=== PATIENT | female | born 1985 | race Caucasian/White ===

== ENCOUNTER 2016-07-09 00:48 | Inpatient (IN) | payer OTHER ==
[~2016-07-09] VITALS: Ht 177.8 cm; Wt 64.5 kg
[2016-07-09] VITALS (7 sets, daily range): BP systolic 94–110; BP diastolic 58–61; PULSE 69–77; RESP 15–16; O2SAT 95–100
[~2016-07-09 00:48] MED LIST: FES300 PO; PNV1TABL57 PO
[2016-07-09] MEDS ORDERED: Alum-Mag Hydrox-Simeth 30 mL Suspension PO PRN (01:35)
[2016-07-09] MEDS ORDERED: Ondansetron 2 mg/mL 2 mL Inj IVPUSH PRN (01:35)
[2016-07-09] MEDS ORDERED: Polyethylene Glycol (PEG) 17 Gm Powder PO PRN (01:35)
--- NOTE | 2016-07-09 01:52 | NUR ---
Direct Admit Report given by Francheska Hernandez RN from [facility] prior to arrival. Pt arrived at [facility] with c/o aida-ambilical pain, nausea and anxiety for 2 weeks.Pt had rec'd 3L NS Bolus, last meds 4 mg morphine at 1849, 4 mg zofran at 1849, 2mg Ativan at 2236, 14mg nicoderm patch. Pt has hx of depression, anxiety, and IV drug use. Left Peripheral IV in place, running slowly, multiple attempts due to drug usage. Pt has medications in purse and was seen taking Paxil. Pt arrived onto unit approx 0115 with ambulance crew on bed. Able to walk with steady gait to scale and hospital bed. VSS. No reports of pain. Pt received 3mg morphine and 4mg zofran in route from [facility], NS running to [facility]. Pt settled into bed and is sleepy, yet easily aroused and cooperative. NS currently running at 10ml/hr. Oriented to call light, room. Pain relieved by morphine and patient is comfortable.
[2016-07-09 02:29] LABS: BASOPHILS % (AUTO) 0.5 % (0-3); EOSINOPHILS % (AUTO) 3.8 % (0-5); MONOCYTES % (AUTO) 5.2 % (4-12); Mean Corpuscular Hemoglobin 29.8 pg (27.0-35.0); Mean Corpuscular Volume 89.1 fL (81-100); NEUTROPHILS % (AUTO) 39.9 % (40-74); Platelet Count 251 bil/L (150-400)
[2016-07-09] MEDS ORDERED: BUPR1FIL5 SL (02:40)
[2016-07-09] MEDS ORDERED: PARO30TA75 PO (02:42)
[2016-07-09] MEDS ORDERED: ALPR1TAB2 PO (02:43)
[2016-07-09] MEDS ORDERED: MEDR150D9 IM (02:44)
[2016-07-09 03:03] LABS: Magnesium 1.9 mg/dL (1.6-2.6)
[2016-07-09] MEDS ORDERED: LORazepam 0.5 mg Tablet PO PRN (04:45)
--- NOTE | 2016-07-09 05:11 | PCM.HPMED ---
Subjective Date of Service July 09, 2016 Primary Provider: Admitting Physician: Brittney Castillo DO Primary Care Physician: Loren Peterson MD Attending Physician: Brittney Castillo DO Chief Complaint: abd pain History of Present Illness: 31 yo F with history of anxiety and depression and currently on Suboxone therapy for history of prescription drug abuse presents from [facility] for management of pancreatitis. Patient reports she has been having periumbilical and epigastric pain constantly for the last 2 weeks. The pain worsened the last few days and is associated with nausea, vomiting. She denies any fevers, diarrhea, bloody or dark stools, or dysuria. She reports she did have a head cold a few weeks ago, but that resolved quickly. She denies any illicit drug usage or alcohol. Denies any recent trauma, and no one else in her family has these symptoms. At [facility], her vital signs were stable and normal. She had a lipase that was elevated up to 1683 with normal LFTs. Her UA and CBC were unremarkable. Her Ur Preg was negative. She had a CT abd/pelvis with contrast that did not show any acute or inflammatory changes. She also had an xray abd series that did not show any obstruction. Due to lack of space at [facility], patient was transferred to [facility] for further inpatient care for her pain and elevated lipase. She did receive Morphine and Zofran for symptom management at [facility]. Review of Systems: complete review of systems obtained and negative except as stated in history of present illness Allergies Coded Allergies: No Known Allergies (Unverified Allergy, 08/21/11) Uncoded Allergies: BLUEBERRIES (Allergy, Severe, ANAPHYLAXIS, 08/22/11) Home Medications Xanax QHS Paxil daily Suboxone 4 mg Depo IM PMH Anxiety Depression Rx drug abuse Currently on Suboxone therapy at [facility] Abnormal Pap Smear Surgical History Denies any surgical history Family History Distant family history of breast cancer only Social History Hx Alcohol Use: No Hx Substance Use: No (Pt states None) Hx Tobacco Use: Yes Smoking Status: Current Every Day Smoker (0.5 ppd) Living Arrangement: with Family Exam Vital Signs Vital Sign - Last Date Time Temp Pulse Resp B/P Pulse Ox O2 Delivery O2 Flow Rate FiO2 07/09/16 02:23 73 07/09/16 01:20 36.8 16 110/61 98 Room Air Exam Gen: Well developed female who appears in NAD, A&Ox3 HEENT: PERRLA, EOMI, oropharynx moist and pink Neck: Soft, NT, trachea midline CV: RRR, no m/r/c, peripheral pulses intact and equal Resp; CTAB, no wheezing/rhonchi. normal resp effort Abd: Soft, Tender to palpation of periumbilical and epigastric region, no guarding, no rebound, normoactive bs noted. No rashes MSk; MS grossly intact and equal. No swollen or tender joints, no peripheral edema Neuro: No focal weakness. Neurovascularly intact. Skin: Warm, dry, intact Psych; Appropriate mood and affect, linear thought process. Lab and Diagnostics Result Diagram: 07/09/1620907/09/16209 X-Rays, CTs and MRIs CT abd/pelvis w. contrast from [facility]: Read as No acute inflammatory changes in abdomen. Assessment & Plan 31 yo F with history of anxiety and depression and currently on Suboxone therapy for history of prescription drug abuse presents from [facility] for management of pancreatitis. #Pancreatitis, Present on Admission Lipase was as high as 1600s at H. Has decreased to 177 here. Her pain is well controlled with small doses of Morphine given at [facility]. There was mentioning of IVDU during report from [facility], but patient denies this. No pertinent findings on CT abd/pelvis. Symptoms improving Will continue symptomatic management with Zofran and IV Morphine. Start with clear liquids and increase diet as tolerated Will encourage oral hydration since patient's symptoms are mild and VSS. She did receive copious hydration at [facility]. Placed on Tele for CV monitoring #Mood Disorder, POA Will continue patient's Paroxetine. Monitor to see if this medication is worsening her pancreatitis. Will hold Xanax and instead use Ativan prn anxiety. #Tobacco dependence, POA Encourage cessation, puts her at risk for chronic pancreatitis Nicotine patch prn. Tylenol prn fever/pain Bowel Regimen prn constipation Code Status: Full code Dispo: Patient is admitted under observation status with expected LOS <2 nights due to risk of adverse events and medical complexity. Pain Evaluation: Adequate Pain Control VTE Prophylaxis: Sub-Q Heparin (Unfractionated), SCDs Resuscitation Status: CPR: Attempt Resuscitation Attending Statement The patient was seen and examined together with house staff on 07/09/2016 and I agree with the history, exam and plan as outlined in the note above. Brian Barbour DO July 09, 2016 04:25 Brittney Castillo DO July 09, 2016 06:39
--- NOTE | 2016-07-09 06:49 | NUR ---
Pain/Nausea No requests for pain medication or nausea medication during this shift. Patient experiencing some discomfort, but was able to sleep as she stated, and hasn't felt the pain while resting. No nausea reported. Pt requested warm blankets and chapstick. Preferred to sleep between rounding and vitals.
[2016-07-09] MEDS: 0.9% Sodium Chloride 1,000 ML IV SCH ×2 (08:32→17:57)
[2016-07-09] MEDS: PARoxetine 20 mg Tablet PO SCH (08:33)
[2016-07-09] MEDS: Heparin 5,000 Unit/mL Inj SUBQ SCH ×2 (08:34→16:09)
[2016-07-09] MEDS: Buprenorphine 2 mg SL Tablet SL SCH (09:25)
--- NOTE | 2016-07-09 11:02 | DRSVH ---
PROCEDURE: MRI ABDOMEN WITHOUT CONTRAST ([id number]) INDICATIONS: pancreatitis TECHNIQUE: Coronal HASTE through the abdomen, axial 2-D FLASH in- and [id number], and breath-hold T2 FSE with fat saturation through the biliary system and pancreas. Oblique coronal and axial thin-slice HASTE, radial thick-slab HASTE centered on the extrahepatic bile ducts. Intravenous secretin: Not requested. COMPARISON: None. FINDINGS: Image quality: Diagnostic. Liver: The liver is normal in size. No focal liver lesions are evident. However, evaluation for haywood btle liver lesions is difficult on this exam as the entire liver is not adequately visualized and no contrast was administered. Expected the major flow-voids within the liver including the portal vein and hepatic veins are within normal limits. No signal dropout is evident on the opposed phase images compared to the in phase images to suggest hepatic steatosis. The gallbladder is slightly prominent in size. However, no gallbladder wall thickening or pericholecystic fluid is evident. No cholelithi asis is present. No intrahepatic biliary dilatation is present. The common bile duct measures up to 5 mm in diameter. No intraluminal filling defects are present to suggest choledocholithiasis. Pancreas: The main pancreatic duct is enlarged and measures up to approximately 4 mm. No intralumina l filling defects are appreciated. The pancreas is normal in size. No definite pancreatic lesion is appreciated. No significant peripancreatic edema is evident. No loculated fluid collection is eviden t. Other solid organs: The spleen is normal in size. No adrenal nodules. Both kidneys are normal in s ize, without hydronephrosis. Nodes and vessels: No retroperitoneal or mesenteric adenopathy by size criteria. Aorta and inferior vena cava are normal in size. Bowel and peritoneum: Unenhanced bowel loops are normal in caliber. No free fluid. Lung bases: Small bilateral effusions are present. There is minimal right basilar consolidation. Th e heart is normal in size. Bilateral breast implants are present. Bones and soft tissues: No ventral hernias. Bone marrow is of normal overall signal. Mild degenera tive changes of the lower lumbar spine are present. IMPRESSION: 1. No cholelithiasis or choledocholithiasis. 2. Mild enlargement of the main pancreatic duct without an intraluminal filling defect. No peripanc reatic fluid collections or abscess. No pancreatic mass is evident. The need for dedicated contrast enhanced MR or CT imaging of the pancreas may be determined clinically. 3. Trace bilateral effusions (right slightly greater than left) with corresponding basilar atelectas is. Dictated by: Theodore Terrell M.D. on 07/09/2016 at 9:27 Approved by: Theodore Terrell M.D. on 07/09/2016 at 10:00
--- NOTE | 2016-07-09 11:22 | DRSVH ---
PROCEDURE: US PELVIC SONOGRAM + TRANSVAGINAL SONOGRAM INDICATIONS: lower abd pain TECHNIQUE: Real-time scanning was performed of the pelvic organs, with image documentation. Additional endovagi nal scanning was necessary due to incomplete visualization of the adnexal and endometrial structures by transabdominal scanning. COMPARISON: [facility], MR, MR SABINE MELLO, 07/09/2016, 9:36. FINDINGS: (orthogonal measurements) Uterus size: 7.24 cm, 3.44 cm, 4.28 cm Endometrium thickness: 2.60 mm Right ovary size: 2.62 cm, 3.11 cm, 1.72 cm Left ovary size: 2.12 cm, 1.16 cm, 3.22 cm Transabdominal scanning: Limited scanning through the kidneys shows no hydronephrosis. No pathologi c free abdominal or pelvic fluid. Endovaginal scanning: Uterus: Uterus is normal in size and appearance. Bicornuate uterus noted. Endometrium is within nor mal physiologic limits. Ovaries: Within normal physiologic limits, with multiple bilateral follicular cysts largest on the r ight measuring roughly 21 mm. IMPRESSION: No source for pelvic pain identified sonographically. Dictated by: Beltran Nichols [facility] Interpreted: Henry James MD on 07/09/2016 at 11:20 Transcribed by: JAVAN on 07/09/2016 at 11:22 Approved by: Henry James M.D. on 07/09/2016 at 14:15
[2016-07-09] MEDS ORDERED: ALPR2TAB6 PO (11:39)
--- NOTE | 2016-07-09 13:47 | NUR ---
Social Work- Brief Note Data: EMR reviewed. Pt is a 31 year old female admitted 07/09/16 for pancreatitis per H&P. Pt's insurance is [employer]. Pt's PCP is Loren Peterson MD. SW met with pt at bedside regarding discharge plan, SW role explained. Pt alert and oriented x3. Pt resides in [place] with her family where she is independent at base. Pt has a history of depression and anxiety, SW checked in regarding this. Pt states this is something that she feels every day, but she is able to manage it. She has a history of services at [facility], though she is not currently seeing them after multiple scheduling conflicts. Pt denies SI/HI at this time. SW provided MH resources, pt declining them at this time as she states "I know who I need to call." Pt is currently connected with suboxone through [facility]. Pt reports last visit with [facility] two weeks ago. Pt declines any CD resources at this time. Pt has no DPOA on file, declined paperwork at this time. Pt to discharge home with mother to transport via POV. No anticipated discharge needs. SW will continue to follow as needs arise. Assessment: Pt who is independent at base. Plan: Pt declining MH and CD resources at this time. Pt denies any feelings of SI/HI. Pt to discharge home with mother to transport via POV. No anticipated discharge needs. SW will continue to follow as needs arise. Daisy Clifton, MECHANICAL APPLICATIONS ENGINEER
--- NOTE | 2016-07-09 14:30 | NUR ---
Pain or Nausea Patient is alert and oriented X3. Able to make needs known. Ultrasound and MRI abdomen done this shift per hospitalist. Stable vital signs. Encouraged Hydration. Tolerating well clear liquids for meals. patient ate Jello and ice cream per preference. Abdominal discomfort to left side of abdomen and non pharmacologic method of pain relief with Ice pack with some relief. will continue to monitor. Toby saab hospitalist. awaiting response back.
--- NOTE | 2016-07-09 17:19 | PCM.CHPMED ---
Subjective Date of Service: July 09, 2016 Primary Physician: Admitting Physician: Brittney Castillo DO Primary Care Physician: Loren Peterson MD Attending Physician: Brittney Castillo DO Chief Complaint: Chief Complaint: Abdominal Pain History of Present Illness: GI consult note 31-year-old female with a prior history of IV drug abuse currently on Suboxone and depression/anxiety was transferred to [facility] due to elevated lipase of 1683 discovered at [facility]. Patient states that the last couple weeks she been having some periumbilical and left lower quadrant abdominal pain which is slowly improving. Prior to admission the patient had an increase in the pain with associated nausea and vomiting 1. Patient states that she has never had this pain before and denies any recent alcohol use, stating that she no longer drinks and has not for a number of years. She also states that she has had a few episodes of diarrhea that this was only after using MiraLAX due to constipation. With regards to the pain the patient states that is not radiating, house and moved, is crampy in nature, and is not improving bowel movements. She denies fever, headache, cough, or other signs of systemic infection. Patient was previously an IV drug user was been sober now for 6 years with reported negative hepatitis and HIV panels completed 4 years ago. At [facility], patient underwent CT of the abdomen and pelvis did not show inflammatory pancreas, or obstruction. Patient was treated with copious amounts of fluids as well as morphine and Zofran. MRI on admission here revealed mild enlargement of the main pancreatic duct without intraluminal filling defect. There are no masses or cysts seen in the pancreas. It is noted that this was a nonenhanced MRI. Transvaginal Ultrasound of the patient' s ovaries revealed multiple bilateral follicular cysts with the largest being 21 mm on the right. Review of Systems: See history of present illness PMH Past Medical History Anxiety Depression Rx drug abuse Currently on Suboxone therapy at [facility] Abnormal Pap Smear Hx Any Other Health Problems?: NoHx Diabetes: No Surgical History None Home Medications Xanax QHS Paxil daily Suboxone 4 mg Depo IM Allergies: Coded Allergies: No Known Allergies (Unverified Allergy, 08/21/11) Uncoded Allergies: BLUEBERRIES (Allergy, Severe, ANAPHYLAXIS, 08/22/11) Family History Family History Breast cancer, not first-degree relative Social History Hx Alcohol Use: NoHx Substance Use: No (Pt states None)Hx Tobacco Use: Yes Smoking Status: Current Every Day Smoker (0.5 ppd) Living Arrangement: with Family Exam Vital Signs Vital Sign - Last Date Time Temp Pulse Resp B/P Pulse Ox O2 Delivery O2 Flow Rate FiO2 07/09/16 12:30 36.9 69 15 94/60 97 Room Air Intake and Output 07/08/16 07/08/16 07/09/16 Cumulative From/Thru 15:00 23:00 07:00 07/09/16 01:20 - 07/09/16 06:39 Intake Total 203 ml 203 ml Balance 203 ml 203 ml Intake Oral 150 ml 150 ml IV Total 53 ml 53 ml # Voids 1 1 Additional Information: General: Patient lying comfortably in bed, no acute distress HEENT: No conjunctivitis, PERRLA, neck is supple, oropharynx is clear Cardio: Regular rate and rhythm Respiratory: CTA bilaterally Abdomen: Hyperactive bowel sounds, mild tenderness on palpation in the left upper quadrant with worse tenderness in the left lower quadrant; no rebound tenderness Extremity: No edema, moving all 4 extremities Skin: No rash Neuro: CN II through XII intact, sensation intact throughout Psych: Appropriate mood and affect Lab and Diagnostics Result Diagram: 07/09/1620907/09/16 0210 Assessment & Plan Assessment 31-year-old female with 2 weeks of abdominal pain with acute worsening and a MRI of the abdomen showing mildly dilated pancreatic duct, contracted gallbladder. Patient also has multiple ovarian cysts which could be benign or playing a role in the patient's pain. With such a high elevation of lipase at is likely this patient had pancreatitis likely from a gallstone that has now evacuated the duct, sphincter of Edenilson spasm due to suboxone, or even possibly, but less likely autoimmune pancreatitis. Of note, patient responded well to treatment for pancreatitis with current lipase of 177. Patient's triglycerides were also normal at 111. Problem list: Pancreatitis unknown etiology Anxiety and depression Recovering IV drug user Recommendation: Continue with IV hydration and advance diet as tolerated. Placed her for IgG for can await the GTT. Recommend ordered an MRI with contrast, HIDA scan, gallbladder ultrasound, and will plan to do an EGD tomorrow morning. If we do not have an etiology for the pancreatitis, she will need endoscopic ultrasound. This study can be done as an outpatient. I saw and examined this pt with Dr Moraes and agree with above. Thank you for allowing us to participate in the care of this interesting patient Problems: Pain Evaluation: Adequate Pain Control VTE Prophylaxis: Sub-Q Heparin (Unfractionated), SCDs Resuscitation Status: CPR: Attempt Resuscitation Neil Barr DO July 09, 2016 17:19 Jethro Rodriguez MD July 11, 2016 07:49
[2016-07-09] MEDS ORDERED: Ketorolac 15 mg/mL Inj IVPUSH PRN (19:50)
[2016-07-09] MEDS ORDERED: PARoxetine 20 mg Tablet PO SCH (21:00)
[2016-07-10] MEDS: 0.9% Sodium Chloride 1,000 ML IV SCH ×3 (01:08→18:32)
[2016-07-10] MEDS: Heparin 5,000 Unit/mL Inj SUBQ SCH (01:12)
[2016-07-10 06:11] VITALS: BP 94/52; PULSE 86; RESP 16; O2SAT 96
--- NOTE | 2016-07-10 06:50 | NUR ---
Pain/NPO Pt has had no c/o pain, slept well and no issues w/ 3mg xanax dose. Pt has been NPO as of midnight, will likely have HIDA scan, MRI w/ contrast, and Upper endoscopy, today. It would be best if HIDA scan could come first r/t narcs given during a scope being c/i w/ HIDA.
[2016-07-10] MEDS: PARoxetine 20 mg Tablet PO SCH (08:15)
--- NOTE | 2016-07-10 09:31 | DRSVH ---
PROCEDURE: US ABDOMEN, LIMITED ([id number]) INDICATIONS: Gallbladder/duct stones TECHNIQUE: Real-time focused scanning was performed of the abdomen, with image documentation. COMPARISON: [facility], MR, MR SABINE JACOBO CON, 07/09/2016, 9:36. FINDINGS: Limited exam demonstrating moderately contracted gallbladder which otherwise appears grossl y normal. No definite stones seen. The extra hepatic bile duct measures roughly 6 mm. IMPRESSION: 1. Contracted gallbladder which otherwise is grossly normal. If indicated repeat examination could b e performed after the patient has been fasting 8-10 hours. 2. Extrahepatic bile duct normal in caliber measuring 5.8 mm. Dictated by: Beltran KNIGHT Interpreted: Philippe Polo MD on 07/10/2016 at 9:28 Transcribed by: LAKSHMI on 07/10/2016 at 9:31 Approved by: Philippe Polo M.D. on 07/10/2016 at 11:18
--- NOTE | 2016-07-10 09:56 | PCM.PNMED ---
Subjective Date of Service July 10, 2016 Subjective GI progress note Overnight patient did well. Still continues to have abdominal pain but seems to shift. This morning complaining is one epigastrium with some mild pain in the lower left quadrant which yesterday the pain was majority the left lower quadrant. Left upper quadrant seems to be painless time. Patient denies fever , chills, nausea, vomiting, chest pain, or dizziness. Patient scheduled for ultrasound gallbladder which apparently was performed last night as well as an MRI with contrast and HIDA scan. Patient is also scheduled for an EGD today. Exam Vital Signs Vital Sign - Last Date Time Temp Pulse Resp B/P Pulse Ox O2 Delivery O2 Flow Rate FiO2 07/10/16 06:11 36.9 86 16 94/52 96 Room Air Intake and Output 07/09/16 07/09/16 07/10/16 Cumulative From/Thru 15:00 23:00 07:00 07/09/16 01:20 - 07/10/16 06:11 Intake Total 1435 ml 1378 ml 3016 ml Balance 1435 ml 1378 ml 3016 ml Intake Oral 580 ml 200 ml 930 ml IV Total 855 ml 1178 ml 2086 ml # Voids 4 4 9 Exam General: Patient awake and alert Cardio: Regular rate and rhythm Respiratory: CTA bilaterally Abdomen: Moderate tenderness in epigastrium, mild tenderness left lower quadrant , reduced tenderness in the left upper quadrant Extremities: No edema Psych/neuro: Mood and affect appropriate; sensation intact throughout IVs and Medications Medications Reviewed: Medications were reviewed in detail Lab and Diagnostics Result Diagram: 07/09/16 0210 07/10/16 0745 X-Rays, CTs and MRIs CT abd/pelvis w. contrast from [facility]: Read as No acute inflammatory changes in abdomen. Assessment & Plan Assessment/plan 31-year-old female currently on Suboxone for past IV drug abuse who said 2 weeks of abdominal pain without melena or hematochezia. Patient's symptoms seem to be shifting more towards epigastrium and she will go for an EGD today. Patient is also awaiting HIDA scan and MRI with contrast. The patient's symptoms could be due to numerous ongoing etiologies. Initially her lipase suggested pancreatitis (1600+) that was likely chronic but no clear etiology has been yet defined. Good likelihood that it is second to her Suboxone use causing sphincter of Edenilson spasm causing chronic pancreatitis and leading to mild dilation of the main pancreatic duct as seen on previous MRI. Other etiologies could be from resolved gallstones which should be investigated by the end of the day. The etiology is not completely clear. She will need endoscopic ultrasound. This study can be done as an outpatient. Patient should follow-up to see me in the next few weeks. I spoke to my MA to schedule her with me in the GI Clinic and schedule her with EUS with Dr Simon. Patient also underwent a transvaginal ultrasound with identification of multiple ovarian cysts with the largest being 21 mm on the right side. Some possible that the left lower quadrant pain could be due to the ovarian cysts although this is hard to confirm as her pain continues to shift. I have seen and examined the patient with the resident and agree with above. Thank you for allowing us to participate in the care of this patient; please feel free to call if questions. VTE Prophylaxis: Sub-Q Heparin (Unfractionated), SCDs Resuscitation Status: CPR: Attempt Resuscitation Neil Barr DO July 10, 2016 09:56 Jethro Rodriguez MD July 11, 2016 07:55
--- NOTE | 2016-07-10 10:30 | NUR ---
Morning Rounds Staffed patient's case with Dr. Pace and case management. MD stated patient can have dose of suboxone after HIDA/MRI, stated patient can be discharged after EGD scheduled for this afternoon.
--- NOTE | 2016-07-10 11:56 | DRSVH ---
PROCEDURE: NM HIDA SCAN WITHOUT CCK RADIOPHARMACEUTICAL: 5.1 mCi Tc-99m mebrofenin IV. INDICATIONS: ABDOMEN PAIN/ PANCREATITIS TECHNIQUE: Following intravenous administration of Tc-99m mebrofenin, sequential anterior abdominal images were obtained through at least 60 minutes. COMPARISON: None. FINDINGS: There is normal tracer uptake and excretion by the liver. There is normal visualization o f intrahepatic ducts, common bile duct, and the gallbladder. There is normal tracer excretion into d uodenum. IMPRESSION: Radioisotope uptake through the hepatocytes is normal and excretion through the biliary s ystem also appears normal, with reflux into the gallbladder documenting normal filling of the gallbla dder lumen. This study does not include cholecystokinin injection to measure gallbladder ejection fr action. Findings discussed with Dr. Rodriguez. Dictated by: Philippe Polo M.D. on 07/10/2016 at 11:48 Approved by: Philippe Polo M.D. on 07/10/2016 at 11:54
--- NOTE | 2016-07-10 12:26 | DRSVH ---
PROCEDURE: MRI ABDOMEN WITH CONTRAST INDICATIONS: abd pain, pancreatitis. TECHNIQUE: Multiplanar, multisequence MR imaging of the abdomen was performed with intravenous contra st. COMPARISON: [facility], NM, NM HIDA SCAN WO CCK, 07/10/2016, 9:21. [facility], US, ABDOMEN LTD, 07/09/2016, 18:37. [facility], MR, MR ABD WO CON, 07/09/2016, 9:36. FINDINGS: The pancreas is normal in size. There may be a small amount of peripancreatic fluid prese nt. However, no loculated fluid collections or pseudocysts are evident. The pancreas is well visual ized on these images and does demonstrate continued prominence of the main pancreatic duct, measuring approximately 3-4 mm in diameter. The size of the duct is subjectively smaller on the current study compared to the prior MRI. No pancreatic lesions are evident. Specifically, no mass at the head of the pancreas is appreciated. Symmetric enhancement of the pancreas is present without evidence of s uggest pancreatic necrosis. The superior mesenteric vein, splenic vein, and the splenic artery are p atent and otherwise unremarkable. Mild basilar atelectasis is noted bilaterally. Trace bilateral effusions appear to be present. Othe rwise, the lung bases are clear. The liver is within normal limits. No focal liver lesion is eviden t. The gallbladder is not enlarged. A large amount of residual stool seen within the colon. The ab dominal aorta and inferior vena cava are patent. The kidneys are within normal limits. There is no hydronephrosis. The adrenal glands are unremarkable. The spleen is normal in size. Image osseous s tructures are unremarkable. Incidental note is made of bilateral breast implants. IMPRESSION: 1. Borderline prominent pancreatic duct is subjectively smaller on the current study. There is no p ancreatic mass, pseudocyst, or evidence of pancreatic necrosis. A small amount of peripancreatic flu id is present, likely reactive from the patient's known pancreatitis. 2. Minimal basilar atelectasis. 3. Large amount of residual stool within the colon may be related to constipation. Please correlate clinically. Dictated by: Theodore Terrell M.D. on 07/10/2016 at 11:18 Approved by: Theodore Terrell M.D. on 07/10/2016 at 11:25
[2016-07-10] MEDS: Buprenorphine 2 mg SL Tablet SL SCH (12:27)
[2016-07-10 14:03] VITALS: BP 109/67; PULSE 80; RESP 16; O2SAT 97; O2SAT 98
--- NOTE | 2016-07-10 17:02 | NUR ---
EGD Contacted Dr. Pace with the following cook page: Patient has not yet gone for EGD yet, but supposed to go in about 45 min; MD was going to try and reschedule EGD for tomorrow but does not want to hold up discharge. Just letting you know since discharge after EGD was the plan. Thank you. Jessica SHANNON
--- NOTE | 2016-07-10 17:42 | PCM.DIMED ---
Discharge Instructions Date of Service July 10, 2016 Dates of Hospitalization July 09, 2016 at 01:28 Discharge Diagnosis Discharge Diagnosis Pancreatits, acute, chronic pain, PTSD, recent abnormal papsmear Diet No restrictions, Other (low fat) Call your provider Fever or Chills, Shortness of breath, Bleeding, Chest pain, Vomitting, Excessive diarrhea, Weakness (unilateral), Other Patient Instructions Please follow low fat diet Follow-up plan F/U with PCP in ten days F/U with GI in 2 weeks Use medications that are prescribed to relieve constipation. F/U with MEDICAL ASSISTING PROGRAM DIRECTOR as previously scheduled Angela Pace DO July 10, 2016 17:42
[2016-07-10] MEDS ORDERED: POLY17PO6 PO (17:46)
[2016-07-10] MEDS ORDERED: DOCU-41 PO (17:47)
[2016-07-10 17:53] VITALS: BP 105/69; PULSE 74; RESP 17; O2SAT 98
[2016-07-10 18:45] VITALS: BP 99/59; PULSE 68; RESP 12; O2SAT 97
--- NOTE | 2016-07-10 18:45 | PCM.ENDEGD ---
EGD Date of Service: July 10, 2016 Physician Brittney Castillo DO Pre Procedure Diagnosis: Abdominal pain Post Procedure Dx & Findings: Fundic erosions Procedure Esophagogastroduodenoscopy PROCEDURE IN DETAIL: After proper sedation, Olympus video endoscope was inserted into patient's mouth and esophagus was successfully intubated. Scope introduced esophagus. Esophagus showed normal shiny whitish mucosa consistent with squamous cell component. Z line was intact at 42 cm from the incisors. Scope was advanced to the stomach. Stomach showed normal shiny mucosa with normal appearing rugae folds without any ulcer mass erosion. Cardia fundus body antrum pylorus were all visualized. Retroflexion was done. On retroflexion view, we saw few possible erosions on the fundus. These were biopsied. Stomach was easily inflated and deflatable using air. Scope further events to the distal duodenum. Duodenum revealed normal villous structures with normal appearing folds without any mass ulcer erosion. 5 biopsies obtained to rule out celiac disease. Impression Possible fundic erosion. Doubt this is the cause of the abdominal pain. No clear etiology of abdominal pain. Recommendation Carafate 10 mL 3 times a day. Do not take any other medication 90 minutes before or after taking the Carafate. Continue PPI. Advance diet as tolerated Presedation Assessment Risks and Benefits Informed consent was obtained from the patient after all risks and benefits including but not limited to drug reaction, infection, pain, bleeding, perforation, as well as alternatives were discussed. Patient monitoring Continuous pulse oximetry, cardiac monitoring, blood pressure monitoring, IV access, and oxygen at 2L per nasal cannula. Complications There were no periprocedural complications identified. Post Procedure Plan Post Procedure Recommendations 1. Restrict activities today. 2. Resume normal activities in the morning. 3. Resume medications. 4. GERD behavioral modification: - Avoid fatty, acidic, spicy, large meals - Do not lie down after meals - Do not eat or drink anything for at least 2 1/2 hours before going to bed at night - Discontinue tobacco and alcohol - Decrease or avoid caffeine - Avoid chocolate and mints - Decrease weight - Avoid aspirin and non steroidal anti-inflammatory agents (NSAID) such as Aleve, Advil, Mobic, Naproxen, Ibuprofen, etc 5. Add proton pump inhibitor. Take 30 minutes before 1st meal of the day. 6. Patient informed of normal post procedure side effects as bloating, drowsiness, blood streaking in the stool 7. If gastric biopsy reveal H.pylori, continue with appropriate treatment 8. If small bowel biopsy reveals celiac, continue with appropriate treatment 9. Please don't hesitate to call me with any questions Jethro Rodriguez MD July 10, 2016 18:45
--- NOTE | 2016-07-10 18:48 | PCM.HPANE ---
Patient Data Surgeon Admitting Provider:Brittney Castillo DO Attending Provider:Brittney Castillo DO Primary Care Physician:Loren Peterson MD Other Provider: Reason for Visit Pancreatitis Ht/WT & BMI Height (Feet): 5 Height (Inches): 10.00 Weight (Kilograms): 64.500 Body Mass Index 20.36 Allergies Coded Allergies: No Known Allergies (Unverified Allergy, 08/21/11) Uncoded Allergies: BLUEBERRIES (Allergy, Severe, ANAPHYLAXIS, 08/22/11) Past Anesthesia History Anesthesia History: Denies:: Anesthesia Reactions, Malignant Hyperthermia Diabetes History Hx Diabetes?: No MRSA MRSA: No Medications Active Scripts Docusate Sodium (Colace)100 Mg [id number] Mg PO BID PRN For Constipation #30 CAPSULE Ref 0 Prov:Angela Pace DO 07/10/16 Polyethylene Glycol 3350 (Miralax)17 Gm Powd.pack17 Gm PO DAILY #14 Prov:Angela Pace DO 07/10/16 Reported Medications Alprazolam 2 Mg Tablet3 Mg PO QPM PRN For Anxiety Ref 0 07/09/16 Medroxyprogesterone Acetate (Depo-Provera)150 Mg/1 Ml [id number] Mg IM 07/09/16 Paroxetine (Paxil)30 Mg Dsqkis44 Mg PO DAILY DEPRESSION Ref 2 07/09/16 Buprenorphine HCl/Naloxone HCl (Suboxone 4 mg-1 mg Sl Film)1 Each Film1 Each SL DAILY PRN Withdrawal Symptoms #1 FILM Ref 0 07/09/16 Discontinued Reported Medications Alprazolam (Xanax)1 Mg Tablet1 Mg PO HS Ref 3 07/09/16 Ferrous Sulfate-Expunged Drug, Do Not Renew! (Feosol-Expunged Drug, Do Not Renew !)325 Mg [id number] ( Po Daily #1 08/22/11 PNV CMB#95/FERROUS FUMARATE/FA-Expunged Drug, (-Expunged Drug, Do Not Renew!)1 Each Tablet1 Each PO DAILY #1 08/22/11 History History of ENT Problems?: No HEENT History: Denies:: Hearing Problem Denture Type: Full- Upper Full- Lower Teeth Condition: Within Normal Limits Hx of Heart Problems?: No Cardiovascular History: Denies:: AICD Abdominal Aortic Aneurism Atrial Fibrillation Cardiac Surgery Chest Pain Congestive Heart Failure Coronary Artery Disease Edema Heart Murmur Hypertension Irregular Heartbeat Pacemaker Peripheral Vascular Rheumatic Fever Thrombophlebitis Valvular Heart Disease Hx of Respiratory Problem?: Yes Respiratory History: Positive for:: Asthma (Exercise induced) Hx Neurologic Problems?: Yes Neurological History: Positive for:: Dizziness Denies:: Alzheimer's Disease CVA Dementia Headaches Parkinson's Disease Seizures Hx of GI Problems?: Yes Other GI Pertinent History: IBS Hx of Problems?: No Genitourinary History: Denies:: HX of Hemodialysis Kidney Stones Urinary Tract Infection Hx Musculoskeletal Problems?: Yes Musculoskeletal History: Positive for:: Back Injury (Back "goes out" occasionally) Denies:: Joint Replacement Musculoskeletal Trauma Hx of Psycho/Social Problems?: Yes Psycho Social History: Positive for:: Anxiety (3mg of xanax before bed) Hx Depression (PTSD) Denies:: Bipolar Disorder Suicide Attempt Hx Surgeries?: Yes (Tonsils, Breast Augmentation 2003) Hx Any Other Health Problems?: No Other History: Positive for:: Hospitalization History Blood Transfusions: Positive for:: Accept Blood Products? Denies:: Blood Transfusions Hx Diabetes: No Hx Alcohol Use: NoHx Substance Use: No (Pt states None) Smoking Status: Current Every Day Smoker Have You Smoked inLast 12 mo: YesApprox How Many Cigarettes/day: 4 Stop/Bang Treated for Sleep Apnea?: No Do You Have a CPAP Machine?: No S-Snoring: Do You Snore Loudly: No T-Tired: feel tired, fatigued: Yes O-Obsered: Observed not breath: No P-Blood Pressure: treated: No B- Body Mass Index > 35 kg/m2: No A- Age over 50: No N- Neck Large Circumference: No G- Gender Male: No GAETANO Total Score: 1 Risk Assessment Category Category 1A: Patient has history of documented sleep apnea, and HAS NOT received any narcotic, sedative or anesthesia administration during this stay. Category 1B: Patient has history of documented sleep apnea, and HAS received any narcotic , sedative or anesthesia administration during this stay Category 2: Patient has SUSPECTED Obstructive Sleep Apnea, and HAS received any narcotic , sedative or anesthesia administration during this stay. Category 3: Patient has SUSPECTED Obstructive Sleep Apnea and HAS NOT received narcotic, sedative or anesthesia administration during this stay. Category 4: Outpatient in Procedural Areas with known sleep apnea or who screen positive for High Risk via the STOP/BANG questionnaire. Exam Exam Vital Signs Vital Signs Date Time Temp Pulse Resp B/P Pulse Ox O2 Delivery O2 Flow Rate FiO2 07/10/16 17:53 36.7 74 17 105/69 98 Room Air 07/10/16 14:03 36.9 80 16 109/67 98 Room Air General Appearance: Alert, Oriented X3, Cooperative, No Acute Distress HEENT/AIRWAY: MP 2 Lungs: Clear to Auscultation Heart: Exam Unremarkable Meds/Labs/Diagnostics Admission Meds Current Medications Famotidine (Pepcid) 20 mg BID PO Last administered on 07/10/16 08:14; Start 07/09/16 at 20:30 Nicotine (Nicoderm 21 mg/ 24 Hr Patch) 1 patch Q24H TOPICAL Last administered on 07/10/16 15:48; Start 07/09/16 at 21:10 Labs Test 07/09/16 02:10 07/09/16 07:00 07/10/16 07:45 White Blood Count 6.1th/mm3 (3.8-10.1) Red Blood Count 3.76mil/mm3 (3.90-5.20) Hemoglobin 11.2g/dL (12.0-15.6) Hematocrit 33.5% (35.0-46.0) Mean Corpuscular Volume 89.1fL (81-100) Mean Corpuscular Hemoglobin 29.8pg (27.0-35.0) Mean Corpuscular Hemoglobin Concent 33.4% (32.0-37.0) Red Cell Distribution Width 12.2% (12.3-15.4) Platelet Count 251bil/L (150-400) Neutrophils (%) (Auto) 39.9% (40-74) Lymphocytes (%) (Auto) 50.4% (14-46) Monocytes (%) (Auto) 5.2% (4-12) Eosinophils (%) (Auto) 3.8% (0-5) Basophils (%) (Auto) 0.5% (0-3) Magnesium Level 1.9mg/dL (1.6-2.6) Triglycerides Level 111mg/dL (0-149) Cholesterol Level 169mg/dL (100-199) LDL Cholesterol, Calculated 110.800mg/dL (0-99) VLDL Cholesterol 22.200mg/dL HDL Cholesterol 36mg/dL (>39) Cholesterol/HDL Ratio 4.69 (0.0-4.4) Sodium Level 142mEq/L (134-144) Potassium Level 4.2mEq/L (3.5-5.2) Chloride Level 108mEq/L (97-108) Carbon Dioxide Level 23mmol/L (18-29) Blood Urea Nitrogen 5mg/dL (6-20) Creatinine 0.62mg/dL (0.57-1.00) Estimat Glomerular Filtration Rate 159mL/min (>59) Glucose Level 99mg/dL (60-99) Calcium Level 8.9mg/dL (8.5-10.1) Total Bilirubin 0.3mg/dL (0.0-1.2) Aspartate Amino Transf (AST/SGOT) 23U/L (0-50) Alanine Aminotransferase (ALT/SGPT) 16U/L (0-32) Alkaline Phosphatase 44U/L (25-150) Total Protein 5.5g/dL (6.4-8.4) Albumin 3.5g/dL (3.4-5.0) Lipase 23U/L (13-60) Plan Impression Patient chart reviewed, patient interviewed and anesthestic plan with risks, benefits, and alternatives discussed, and informed consent obtained. ASA Physical Status: ASA3 Severe Disease Anesthetic Plan: MAC Bene/Risks/Altern/Consents: Yes HP Complete Prior to Induction: Yes Gian Ramírez MD July 10, 2016 18:09
--- NOTE | 2016-07-10 18:49 | PCM.ANEP1 ---
Post Anesthesia Phase 1 PACU Phase 1 Assessment Date of Service: July 10, 2016 Vital Signs Vital Signs Date Time Temp Pulse Resp B/P Pulse Ox O2 Delivery O2 Flow Rate FiO2 07/10/16 17:53 36.7 74 17 105/69 98 Room Air 07/10/16 14:03 36.9 80 16 109/67 98 Room Air Anesthetic Administered: MAC Level of Alertness: Sleepy, easy to arouse LAIRD's with Equal Strength: No Pain: No Pain Scale Score: 8 Nausea or Vomiting: No Cardiovascular Function and Hy: Yes Oxygen Delivery: Room Air Lungs: Clear to Auscultation Dermatome Level: Full Sensation Complications: No Gian Ramírez MD July 10, 2016 18:49
[2016-07-10 18:54] VITALS: BP 108/68; PULSE 67; RESP 12; O2SAT 98
--- NOTE | 2016-07-10 19:24 | NUR ---
Discharge Discharge instructions given Mother at bedside to provide ride, IV acces d/c'd
[2016-07-10] MEDS ORDERED: fentaNYL-PF 50 mCg/mL 2 mL Inj ONE (19:30)
[2016-07-10] MEDS ORDERED: Propofol 10,000 mCg/mL 20 mL Inj ONE (19:30)
--- NOTE | 2016-07-10 22:11 | PCM.DC.MED ---
Discharge Summary Date of Service July 10, 2016 Dates of Hospitalization Date of Hospital Admission July 09, 2016 at 01:28 Date of Discharge: July 10, 2016 Providers: Admitting Physician: Brittney Castillo DO Primary Care Physician: Loren Peterson MD Attending Physician: Brittney Castillo DO Diagnosis at Time of Discharge Diagnosis at Time of Discharge Pancreatits, acute, chronic pain, PTSD, recent abnormal papsmear Consultations GI Procedures XRay, CTs & MRIs CT abd/pelvis w. contrast from [facility]: Read as No acute inflammatory changes in abdomen. PROCEDURE: MRI ABDOMEN WITH CONTRAST IMPRESSION: 1. Borderline prominent pancreatic duct is subjectively smaller on the current study. There is no pancreatic mass, pseudocyst, or evidence of pancreatic necrosis. A small amount of peripancreatic fluid is present, likely reactive from the patient's known pancreatitis. 2. Minimal basilar atelectasis. 3. Large amount of residual stool within the colon may be related to constipation. Please correlate clinically. Dictated by: Theodore Terrell M.D. on 07/10/2016 at 11:18 Approved by: Theodore Terrell M.D. on 07/10/2016 at 11:25 PROCEDURE: NM HIDA SCAN WITHOUT CCK IMPRESSION: Radioisotope uptake through the hepatocytes is normal and excretion through the biliary system also appears normal, with reflux into the gallbladder documenting normal filling of the gallbladder lumen. This study does not include cholecystokinin injection to measure gallbladder ejection fraction. Findings discussed with Dr. Rodriguez. Dictated by: Philippe Polo M.D. on 07/10/2016 at 11:48 Approved by: Philippe Polo M.D. on 07/10/2016 at 11:54 PROCEDURE: US ABDOMEN, LIMITED ([id number]) IMPRESSION: 1. Contracted gallbladder which otherwise is grossly normal. If indicated repeat examination could be performed after the patient has been fasting 8-10 hours. 2. Extrahepatic bile duct normal in caliber measuring 5.8 mm. Dictated by: Beltran Nichols RRA Interpreted: Philippe Polo MD on 07/10/2016 at 9: 28 Transcribed by: LAKSHMI on 07/10/2016 at 9:31 Approved by: Philippe Polo M.D. on 07/10/2016 at 11:18 Brief History GI consult note 31-year-old female with a prior history of IV drug abuse currently on Suboxone and depression/anxiety was transferred to [facility] due to elevated lipase of 1683 discovered at [facility]. Patient states that the last couple weeks she been having some periumbilical and left lower quadrant abdominal pain which is slowly improving. Prior to admission the patient had an increase in the pain with associated nausea and vomiting 1. Patient states that she has never had this pain before and denies any recent alcohol use, stating that she no longer drinks and has not for a number of years. She also states that she has had a few episodes of diarrhea that this was only after using MiraLAX due to constipation. With regards to the pain the patient states that is not radiating, house and moved, is crampy in nature, and is not improving bowel movements. She denies fever, headache, cough, or other signs of systemic infection. Patient was previously an IV drug user was been sober now for 6 years with reported negative hepatitis and HIV panels completed 4 years ago. At [facility], patient underwent CT of the abdomen and pelvis did not show inflammatory pancreas, or obstruction. Patient was treated with copious amounts of fluids as well as morphine and Zofran. MRI on admission here revealed mild enlargement of the main pancreatic duct without intraluminal filling defect. There are no masses or cysts seen in the pancreas. It is noted that this was a nonenhanced MRI. Transvaginal Ultrasound of the patient' s ovaries revealed multiple bilateral follicular cysts with the largest being 21 mm on the right. Hospital Course 31 yo F with history of anxiety and depression and currently on Suboxone therapy for history of prescription drug abuse presents from [facility] for management of pancreatitis. #Pancreatitis, Present on Admission Lipase was as high as 1600s at [facility]. Has decreased to 177 here. Her pain is well controlled with small doses of Morphine given at [facility]. There was mentioning of IVDU during report from [facility], but patient denies this. No pertinent findings on CT abd/pelvis. Symptoms improving Will continue symptomatic management with Zofran and IV Morphine. Start with clear liquids and increase diet as tolerated Will encourage oral hydration since patient's symptoms are mild and VSS. She did receive copious hydration at [facility]. Discontinue telemetry monitoring 07/10 Lipase normalized 07/10. Patient is tolerating clear liquids. Nausea vomiting have resolved GI was consulted and ordered MRI abdomen with contrast, ultrasound of abdomen and HIDA scan: No remarkable findings for cholelithiasis, cholecystitis or biliary dyskinesia. Her pancreatitis is thought to be secondary to her pain medication usage. -- Autoimmune panel ordered by GI is still pending at this time. We will requested PCP and GI follows on his results Epigastric pain: [facility] has performed a EGD -- Per the note few areas of erosion were noted in the stomach. Biopsies were taken -- They recommend omeprazole or proton pump inhibitor. This was passed on to the patient, patient stated that she will buy it [id number]. -- Follow with GI to set up in 2 weeks Constipation: As evidenced by the imaging -- Patient is given MiraLAX and Colace prescription -- She is encouraged to discuss this with her pain medication provider, if the constipation does not resolve after she goes home. #Mood Disorder, POA Will continue patient's Paroxetine. Monitor to see if this medication is worsening her pancreatitis. Will hold Xanax and instead use Ativan prn anxiety. #Tobacco dependence, POA Encourage cessation, puts her at risk for chronic pancreatitis Nicotine patch prn. Tylenol prn fever/pain Bowel Regimen prn constipation Code Status: Full code Dispo: Patient is admitted under observation status with expected LOS <2 nights due to risk of adverse events and medical complexity. Pain Evaluation: Adequate Pain Control VTE Prophylaxis: Sub-Q Heparin (Unfractionated), SCDs Resuscitation Status: CPR: Attempt Resuscitation Attending Statement The patient was seen and examined together with house staff on 07/09/2016 and I agree with the history, exam and plan as outlined in the note above. Exam Vital Signs (Last) Date Time Temp Pulse Resp B/P Pulse Ox O2 Delivery O2 Flow Rate FiO2 07/10/16 14:03 36.9 80 16 109/67 98 Room Air Exam General: NAD, laying in bed, HEENT: NCAT, Eyes: [place] conjunctivae. No ptosis, PERRL Neck: No masses, trachea midline, no thyromegaly Lungs: CTA with normal respiratory effort, no crackles or wheezes CV: RRR, no murmurs/rubs/gallops, normal PMI GI: Soft, non-tender with no hepatosplenomegaly MSK: Normal gait and station, no digital cyanosis Skin: Warm and dry. No rash, lesions or ulcers Psych: A&O X3, with appropriate affect Test 07/09/16 02:10 07/09/16 07:00 07/10/16 07:45 White Blood Count 6.1th/mm3 (3.8-10.1) Red Blood Count 3.76mil/mm3 (3.90-5.20) Hemoglobin 11.2g/dL (12.0-15.6) Hematocrit 33.5% (35.0-46.0) Mean Corpuscular Volume 89.1fL (81-100) Mean Corpuscular Hemoglobin 29.8pg (27.0-35.0) Mean Corpuscular Hemoglobin Concent 33.4% (32.0-37.0) Red Cell Distribution Width 12.2% (12.3-15.4) Platelet Count 251bil/L (150-400) Neutrophils (%) (Auto) 39.9% (40-74) Lymphocytes (%) (Auto) 50.4% (14-46) Monocytes (%) (Auto) 5.2% (4-12) Eosinophils (%) (Auto) 3.8% (0-5) Basophils (%) (Auto) 0.5% (0-3) Magnesium Level 1.9mg/dL (1.6-2.6) Triglycerides Level 111mg/dL (0-149) Cholesterol Level 169mg/dL (100-199) LDL Cholesterol, Calculated 110.800mg/dL (0-99) VLDL Cholesterol 22.200mg/dL HDL Cholesterol 36mg/dL (>39) Cholesterol/HDL Ratio 4.69 (0.0-4.4) Sodium Level 142mEq/L (134-144) Potassium Level 4.2mEq/L (3.5-5.2) Chloride Level 108mEq/L (97-108) Carbon Dioxide Level 23mmol/L (18-29) Blood Urea Nitrogen 5mg/dL (6-20) Creatinine 0.62mg/dL (0.57-1.00) Estimat Glomerular Filtration Rate 159mL/min (>59) Glucose Level 99mg/dL (60-99) Calcium Level 8.9mg/dL (8.5-10.1) Total Bilirubin 0.3mg/dL (0.0-1.2) Aspartate Amino Transf (AST/SGOT) 23U/L (0-50) Alanine Aminotransferase (ALT/SGPT) 16U/L (0-32) Alkaline Phosphatase 44U/L (25-150) Total Protein 5.5g/dL (6.4-8.4) Albumin 3.5g/dL (3.4-5.0) Lipase 23U/L (13-60) Discharge Medications Discharge Medications Paroxetine (Paxil) 30 Mg Tablet 60 MG PO DAILY (Reported) Polyethylene Glycol 3350 (Miralax) 17 Gm Powd.pack 17 GM PO DAILY Prescribed by: ANGELA MARINELLI DO As needed Alprazolam (Alprazolam) 2 Mg Tablet 3 MG PO QPM PRN PRN For Anxiety (Reported) Buprenorphine HCl/Naloxone HCl (Suboxone 4 mg-1 mg Sl Film) 1 Each Film 1 EACH SL DAILY PRN PRN Withdrawal Symptoms (Reported) Docusate Sodium (Colace) 100 Mg Capsule 100 MG PO BID PRN PRN For Constipation Prescribed by: ANGELA MARINELLI DO Miscellaneous Medications Medroxyprogesterone Acetate (Depo-Provera) 150 Mg/1 Ml Syringe 150 MG IM ( Reported) Followup Plan Follow-up plan F/U with PCP in ten days F/U with GI in 2 weeks Use medications that are prescribed to relieve constipation. F/U with LANDSCAPE TECHNICIAN as previously scheduled Discharge Diet: No restrictions, Other (low fat) Patient Instructions Please follow low fat diet Time spent 45 minutes Angela Marinelli DO July 10, 2016 17:48
--- NOTE | 2016-07-12 17:53 | PATH ---
SURGICAL PATHOLOGY Attending Physician:Jetrho Rodriguez M.D. CASE STATUS: Signed Out PATIENT NAME: AYSHA FRANZ PID: [id number] : 1985 DATE COLLECTED:07/10/2016 00:00 SPECIMEN: 1: Duodenum, Biopsy 2: Gastric, Biopsy CLINICAL HISTORY: 1. DUODENAL BX 2. FUNDAL EROSION BX FINAL DIAGNOSIS: 1. Duodenal Biopsy: Duodenal mucosa with no diagnostic abnormality. Negative for active inflammation, features of sprue, dysplasia, or malignancy. 2. Fundal Erosion, Biopsy: Gastric body-type mucosa with focal erosion and no significant histomorphologic abnormality. Negative for H. pylori organisms by H&E stain. Negative for intestinal metaplasia, dysplasia, and malignancy. ICD10: K29.7 GROSS DESCRIPTION: The specimen is received in two formalin filled containers labeled with the patient's name. 1). The specimen is sublabeled "duodenal" and consists of are 4 portions of tissue which aggregate to 0.2 x 0.2 x 0.2 CM. The specimen is entirely submitted in cassette 1A. 2). The specimen is sublabeled "fundal erosion" and consists of 2 portions of tissue which aggregate to 0.3 x 0.2 x 0.2 CM. The specimen is entirely submitted in cassette 2A. 07/11/2016 [facility] ICD-9 CODES: CPT CODES: 1: 88560 2: 59524 Electronically Signed Out Kelly Hyatt MD [facility], [place] [address] Technical component performed at [facility], [address] [place] [address] Ave[address], [place], [address]
== END 2016-07-10 19:31 | disposition home or self-care (01) | DRG 282 ==
LOC: MOC 00:48 → UNDOADMIN 00:48 → MOC 01:28
PROVIDERS: ADMIT Internal Medicine; ATTEND Internal Medicine
PROC: 0DB98ZX Excision of Duodenum, Via Natural or Artificial Opening Endoscopic, Diagnostic (ICD-10-PCS; 2016-07-10)
PROC: 0DB68ZX Excision of Stomach, Via Natural or Artificial Opening Endoscopic, Diagnostic (ICD-10-PCS; principal; 2016-07-10 15:30)
DX: K85.90 Acute pancreatitis without necrosis or infection, unspecified (principal); F11.20 Opioid dependence, uncomplicated; F17.210 Nicotine dependence, cigarettes, uncomplicated; F39 Unspecified mood [affective] disorder; K21.9 Gastro-esophageal reflux disease without esophagitis

== ENCOUNTER 2016-09-12 08:00 | Day surgery (SDC) | payer OTHER ==
[~2016-09-12] VITALS: Ht 175.3 cm; Wt 64.0 kg
[~2016-09-12 08:00] MED LIST changes: +ALPR2TAB6 PO; +BUPR1FIL5 SL; +DOCU-41 PO; -FES300 PO; +Lactated Ringer's 1,000 ML IV ONE; +MEDR150D9 IM; +OMEP20TA24 PO; +PARO30TA75 PO; -PNV1TABL57 PO; +POLY17PO6 PO; +SUCR1ORA2 PO
[2016-09-12] MEDS ORDERED: Propofol 10,000 mCg/mL 20 mL Inj ONE (08:01)
[2016-09-12 08:29] VITALS: BP 104/63; PULSE 87; RESP 16; O2SAT 100
--- NOTE | 2016-09-12 09:33 | PCM.HPANE ---
Patient Data Surgeon Admitting Provider: Attending Provider:Purvi Bro MD Primary Care Physician:Loren Peterson MD Other Provider:Eun Kirby Anesthesia Reason for Visit Acute Pancreatitis Ht/WT & BMI Height (Feet): 5 Height (Inches): 9 Weight (Kilograms): 64 Body Mass Index 20.00 Allergies Coded Allergies: No Known Allergies (Unverified Allergy, Unknown, 09/12/16) Uncoded Allergies: BLUEBERRIES (Allergy, Severe, ANAPHYLAXIS, 08/22/11) Past Anesthesia History Anesthesia History: Denies:: Anesthesia Reactions, Fam Anesthesia Reaction, Fam Malignant Hypertherm, Malignant Hyperthermia Diabetes History Hx Diabetes?: No MRSA MRSA: No Medications Active Scripts Docusate Sodium (Colace)100 Mg [id number] Mg PO BID PRN For Constipation #30 CAPSULE Ref 0 Prov:Angela Pace DO 07/10/16 Reported Medications Alprazolam 2 Mg Tablet3 Mg PO QPM PRN For Anxiety Ref 0 07/09/16 Medroxyprogesterone Acetate (Depo-Provera)150 Mg/1 Ml [id number] Mg IM 07/09/16 Buprenorphine HCl/Naloxone HCl (Suboxone 4 mg-1 mg Sl Film)1 Each Film1 Each SL DAILY PRN Withdrawal Symptoms #1 FILM Ref 0 07/09/16 Discontinued Reported Medications Omeprazole Magnesium (Prilosec Otc)20 Mg Tablet.dr20 Mg PO DAILY #1 PKG Ref 0 09/11/16 Sucralfate Susp (Carafate Susp)1 Gm/10 Ml Oral.susp1 Gm PO QID Ref 0 09/11/16 Paroxetine (Paxil)30 Mg Dkjhya52 Mg PO DAILY DEPRESSION Ref 2 07/09/16 Discontinued Scripts Polyethylene Glycol 3350 (Miralax)17 Gm Powd.pack17 Gm PO DAILY #14 Prov:Angela Pace DO 07/10/16 History History of ENT Problems?: No HEENT History: Denies:: Hearing Problem Denture Type: Full- Upper Full- Lower Teeth Condition: No Teeth Hx of Heart Problems?: No Cardiovascular History: Denies:: AICD Abdominal Aortic Aneurism Atrial Fibrillation Cardiac Surgery Chest Pain Congestive Heart Failure Edema Heart Murmur Hypertension Irregular Heartbeat Pacemaker Rheumatic Fever Thrombophlebitis Valvular Heart Disease Hx of Respiratory Problem?: No Hx Neurologic Problems?: Yes Neurological History: Positive for:: Dizziness Denies:: Alzheimer's Disease CVA Dementia Headaches Parkinson's Disease Seizures Hx of GI Problems?: Yes Other History/Comment pancreatitis Hx of Problems?: No Genitourinary History: Denies:: HX of Hemodialysis Kidney Stones Urinary Tract Infection Female Hx: Denies:: Currently Hx Musculoskeletal Problems?: Yes Musculoskeletal History: Positive for:: Back Injury (Back "goes out" occasionally) Denies:: Joint Replacement Musculoskeletal Trauma Hx of Psycho/Social Problems?: Yes Psycho Social History: Positive for:: Anxiety Denies:: Bipolar Disorder Hx Depression Suicide Attempt Hx Surgeries?: Yes (tonsils, breast augmentation 2001) Hx Any Other Health Problems?: Yes Other History: Positive for:: Hospitalization History Blood Transfusions: Denies:: Blood Transfusions Hx Diabetes: No Hx Alcohol Use: NoHx Substance Use: No (Pt states None) Smoking Status: Current Every Day Smoker Have You Smoked inLast 12 mo: Yes Stop/Bang Treated for Sleep Apnea?: No Do You Have a CPAP Machine?: No S-Snoring: Do You Snore Loudly: No T-Tired: feel tired, fatigued: No O-Obsered: Observed not breath: No P-Blood Pressure: treated: No B- Body Mass Index > 35 kg/m2: No A- Age over 50: No N- Neck Large Circumference: No G- Gender Male: No GAETANO Total Score: 0 Risk Assessment Category Category 1A: Patient has history of documented sleep apnea, and HAS NOT received any narcotic, sedative or anesthesia administration during this stay. Category 1B: Patient has history of documented sleep apnea, and HAS received any narcotic , sedative or anesthesia administration during this stay Category 2: Patient has SUSPECTED Obstructive Sleep Apnea, and HAS received any narcotic , sedative or anesthesia administration during this stay. Category 3: Patient has SUSPECTED Obstructive Sleep Apnea and HAS NOT received narcotic, sedative or anesthesia administration during this stay. Category 4: Outpatient in Procedural Areas with known sleep apnea or who screen positive for High Risk via the STOP/BANG questionnaire. Exam Exam Vital Signs Vital Signs Date Time Temp Pulse Resp B/P Pulse Ox O2 Delivery O2 Flow Rate FiO2 09/12/16 08:29 36.8 87 16 104/63 100 Room Air General Appearance: Alert, Oriented X3, Cooperative HEENT/AIRWAY: MP 2 Lungs: Clear to Auscultation Heart: Exam Unremarkable Plan Impression Patient chart reviewed, patient interviewed and anesthestic plan with risks, benefits, and alternatives discussed, and informed consent obtained. NPO per Anesth. Guidelines: Yes ASA Physical Status: ASA3 Severe Disease Anesthetic Plan: TIVA Bene/Risks/Altern/Consents: Yes HP Complete Prior to Induction: Yes Ayad Mueller MD Sep 12, 2016 09:33
[2016-09-12 10:10] VITALS: BP 114/73; PULSE 84; RESP 16; O2SAT 99
--- NOTE | 2016-09-12 10:15 | PCM.ANEP1 ---
Post Anesthesia PACU Phase 1 Assessment Vital Signs Vital Signs Date Time Temp Pulse Resp B/P Pulse Ox O2 Delivery O2 Flow Rate FiO2 09/12/16 10:10 84 16 114/73 99 Room Air 09/12/16 08:29 36.8 87 16 104/63 100 Room Air Anesthetic Administered: TIVA Level of Alertness: Sleepy, easy to arouse LAIRD's with Equal Strength: Yes Pain: No Nausea or Vomiting: No CV Function & Hydration Stable: Yes Airway Device: Oxygen Delivery: Nasal Cannula Lungs: Clear to Auscultation Dermatome Level: Full Sensation PACU Phase 2 Assessment Complications: No Follow up Care: No Patient Instructions Provided: N/A Ayad Mueller MD Sep 12, 2016 10:15
[2016-09-12 10:22] VITALS: BP 112/75; PULSE 81; RESP 16; O2SAT 97
--- NOTE | 2016-09-12 11:38 | ENDO ---
[address] [address] ENDOSCOPY PROCEDURE PATIENT: AYSHA FRANZ : 1985 MR#: [id number] ADMIT: 09/12/2016 JOB ID: [id number] DATE: 09/12/2016 PROCEDURE: EUS examination. INDICATION: Patient with a history of acute recurrent pancreatitis. Please see Dr. Dionte Mueller's anesthesia report for details regarding ASA classification, Mallampati score and medications. INSTRUMENT USED: [employer] ECT 180 linear echoendoscope. PROCEDURE DETAILS: After informed consent was obtained, the patient was brought into the GI suite, where she was placed on oxygen via nasal cannula and monitored with continuous pulse oximeter, telemetry and blood pressure monitoring. A time-out was performed. Then, she was placed in the left lateral decubitus position and medications were administered for sedation. The linear echo endoscope was then introduced through the bite block and advanced without difficulty to the second portion of the duodenum. Linear echo endoscopic imaging demonstrated the followin. The pancreas contains some mild what appeared to be fat stranding suggestive of mild chronic pancreatitis. 2. The pancreatic duct was visualized and appeared to be approximately 1.3 cm in the head of the pancreas and appeared to be normal in course and caliber throughout the pancreas. 3. The common bile duct was identified and appeared to be normal in course and caliber. 4. Portions of the gallbladder were visualized and appeared unremarkable. No evidence of cholelithiasis was appreciated. 5. Left examined portions of the left lobe of the liver were unremarkable. 6. The portal vein and splenic vein appear to be normal with normal flow. Splenic artery was identified and appeared normal. 7. Celiac axis was identified and appeared unremarkable. 8. Left adrenal gland was identified and appeared to be normal. IMPRESSION: Changes suggestive of mild chronic pancreatitis, otherwise normal examination. RECOMMENDATIONS: 1. Check JADE. 2. Check celiac serologies. If another episode of acute pancreatitis, consider a surgical consultation for possible cholecystectomy. 3. Follow up with Dr Jethro Rodriguez COMPLICATIONS: None. ESTIMATED BLOOD LOSS: 0. MTDD
== END 2016-09-12 23:59 | disposition home or self-care (01) ==
LOC: END 08:00
PROVIDERS: ATTEND Internal Medicine Gastroenterology
DX: K85.90 Acute pancreatitis without necrosis or infection, unspecified (principal); F43.10 Post-traumatic stress disorder, unspecified; G89.29 Other chronic pain; Z79.899 Other long term (current) drug therapy; F17.200 Nicotine dependence, unspecified, uncomplicated
CPT/HCPCS: 43237; J7120

== ENCOUNTER → 2016-11-26 | Day surgery (SDC) | payer OTHER ==
[2016-11-26] VITALS (11 sets, daily range): BP systolic 106–114; BP diastolic 58–78; PULSE 61–91; RESP 12–20; O2SAT 95–100
[~2016-11-26] VITALS: Ht 175.3 cm; Wt 64.0 kg
[~2016-11-26] MED LIST changes: +ACET-171 PO; +Bupivacaine-MPF 0.5% 30 mL Inj INFILTRATE ONE; +Dexamethasone 4 mg/mL Inj IVPUSH PRN; +Dexamethasone 4 mg/mL Inj ONE; +EPHEDrine Sulfate 50 mg/mL Inj IVPUSH PRN; +Glycopyrrolate 0.2 MG/ML 1mL Inj ONE; +HYDROmorphone 1 mg/mL Inj IVPUSH PRN; +IBUP-1827 PO; +Ketamine 10 mg/mL 20 mL Inj ONE; -Lactated Ringer's 1,000 ML IV ONE; +Lactated Ringer's 1,000 ML IV SCH; +Lactated Ringer's 500 ML IV PRN; +MetoCLOpramide 5 mg/mL 2 mL Inj IVPUSH PRN; +Neostigmine 1 mg/mL 10 mL Inj ONE; -OMEP20TA24 PO; +OXYC-530 PO; +Ondansetron 2 mg/mL 2 mL Inj IVPUSH PRN; +Ondansetron 2 mg/mL 2 mL Inj ONE; -PARO30TA75 PO; +Phenylephrine 10,000 mCg/mL Inj IVPUSH PRN; +Propofol 10,000 mCg/mL 20 mL Inj ONE; +Rocuronium 10 mg/mL 5 mL Inj ONE; -SUCR1ORA2 PO; +fentaNYL-PF 50 mCg/mL 2 mL Inj ONE
[2016-11-26] MEDS: Lactated Ringer's 1,000 ML IV SCH ×3 (06:34→11:23)
--- NOTE | 2016-11-26 07:34 | PCM.HPANE ---
Patient Data Surgeon Admitting Provider: Attending Provider:Mckenzie Card MD Primary Care Physician:Loren Peterson MD Other Provider:Sandy Kirbyingham Anesthesia Reason for Visit Pancreatitis Ht/WT & BMI Height (Feet): 5 Height (Inches): 9.00 Weight (Kilograms): 63.960 Body Mass Index 20.00 Allergies Coded Allergies: No Known Allergies (Unverified Allergy, Unknown, 09/12/16) Uncoded Allergies: BLUEBERRIES (Allergy, Severe, ANAPHYLAXIS, 08/22/11) Past Anesthesia History Anesthesia History: Denies:: Abnormal Airway, Anesthesia Reactions, Difficult Intubation, Fam Anesthesia Reaction, Fam Malignant Hypertherm, Malignant Hyperthermia Diabetes History Hx Diabetes?: No MRSA MRSA: No Medications Hypertension Medication: No Home Meds Incl Beta Chava: No Active Scripts Docusate Sodium (Colace)100 Mg [id number] Mg PO BID PRN For Constipation #30 CAPSULE Ref 0 Prov:Angela Pace DO 07/10/16 Reported Medications Alprazolam 2 Mg Tablet3 Mg PO QPM PRN For Anxiety Ref 0 07/09/16 Medroxyprogesterone Acetate (Depo-Provera)150 Mg/1 Ml [id number] Mg IM 07/09/16 Buprenorphine HCl/Naloxone HCl (Suboxone 4 mg-1 mg Sl Film)1 Each Film1 Each SL DAILY PRN Withdrawal Symptoms #1 FILM Ref 0 07/09/16 History History of ENT Problems?: No HEENT History: Denies:: Abnormal Airway Cataracts Difficult Intubation Dysphagia Glaucoma Hearing Problem Sinus Problem TMJ Denture Type: Full- Upper Full- Lower Teeth Condition: No Teeth Hx of Heart Problems?: No Cardiovascular History: Denies:: AICD Abdominal Aortic Aneurism Atrial Fibrillation Cardiac Surgery Chest Pain Congestive Heart Failure Edema Heart Murmur Hypertension Irregular Heartbeat Pacemaker Rheumatic Fever Thrombophlebitis Valvular Heart Disease Hx of Respiratory Problem?: No Respiratory History: Denies:: Asthma COPD Oxygen Administration Pneumonia Tuberculosis (tb exposure, treated for 6-8mos, cleared) Use of C-PAP Machine Use of Inhalers / NEBS Hx Neurologic Problems?: No Neurological History: Positive for:: Dizziness Denies:: Alzheimer's Disease CVA Dementia Headaches Multiple Sclerosis Parkinson's Disease Seizures Hx of GI Problems?: Yes Gastrointestinal History: Positive for:: Gall Bladder Disease (cholecystitis) Hx of Problems?: No Genitourinary History: Denies:: HX of Hemodialysis Kidney Stones Urinary Tract Infection Female Hx: Positive for:: Problems with Breasts? (hx of breast augmentation- fibroid cyst being monitored) Denies:: Currently (depo shots, last dose october 2016) Skin History: Denies:: History Skin Disorders? Pressure Ulcers Hx Musculoskeletal Problems?: Yes Musculoskeletal History: Positive for:: Back Injury (back issues occasionally) Denies:: Degenerative Joint Fibromyalgia Joint Replacement Musculoskeletal Trauma Myasthenia Gravis Osteoarthritis Rheumatoid Arthritis Systemic Lupus Hx of Psycho/Social Problems?: Yes Psycho Social History: Positive for:: Anxiety (PTSD) Denies:: Bipolar Disorder Hx Depression Suicide Attempt Hx Surgeries?: Yes (tonsils, breast augmentation 2001) Hx Any Other Health Problems?: Yes Other History: Positive for:: Hospitalization Denies:: Cancer Thyroid Disease History Blood Transfusions: Positive for:: Accept Blood Products? Denies:: Blood Transfusions Hx Diabetes: No Hx Alcohol Use: NoHx Substance Use: No (prior hx of- quit 6 years ago- on suboxone tx) Smoking Status: Light Tobacco Smoker Have You Smoked inLast 12 mo: Yes (5 cigarettes daily) Stop/Bang Treated for Sleep Apnea?: No Do You Have a CPAP Machine?: No S-Snoring: Do You Snore Loudly: No T-Tired: feel tired, fatigued: No O-Obsered: Observed not breath: No P-Blood Pressure: treated: No B- Body Mass Index > 35 kg/m2: No A- Age over 50: No N- Neck Large Circumference: No G- Gender Male: No GAETANO Total Score: 0 GAETANO Risk Assessment: Low Risk, <3 Yes Risk Assessment Category Category 1A: Patient has history of documented sleep apnea, and HAS NOT received any narcotic, sedative or anesthesia administration during this stay. Category 1B: Patient has history of documented sleep apnea, and HAS received any narcotic , sedative or anesthesia administration during this stay Category 2: Patient has SUSPECTED Obstructive Sleep Apnea, and HAS received any narcotic , sedative or anesthesia administration during this stay. Category 3: Patient has SUSPECTED Obstructive Sleep Apnea and HAS NOT received narcotic, sedative or anesthesia administration during this stay. Category 4: Outpatient in Procedural Areas with known sleep apnea or who screen positive for High Risk via the STOP/BANG questionnaire. Exam Exam Vital Signs Vital Signs Date Time Temp Pulse Resp B/P Pulse Ox O2 Delivery O2 Flow Rate FiO2 11/26/16 06:36 36.0 86 14 108/65 100 Room Air General Appearance: Alert, Oriented X3, Cooperative, No Acute Distress HEENT/AIRWAY: MP 2 Lungs: Clear to Auscultation, Normal Air Movement Heart: Exam Unremarkable, Regular Rate/Rhythm, No Murmurs/Rubs/Gallops Meds/Labs/Diagnostics Admission Meds Current Medications Lactated Ringer's (Lr) 1,000 ml @ 120 mls/hr Q8H20M IV Last administered on 06:34; Start 11/26/16 at 05:00; Stop 11/26/16 at 13:19 Gabapentin (Neurontin) 600 mg PREOP ONCE PO Last administered on 11/26/16 06: 00; Start 11/26/16 at 06:00; Stop 11/26/16 at 06:01; Status DC Celecoxib (CeleBREX) 200 mg PREOP ONCE PO Last administered on 11/26/16 06:00 ; Start 11/26/16 at 06:00; Stop 11/26/16 at 06:01; Status DC Scopolamine (Transderm-Scop Patch) 1.5 mg ONCE ONCE TOPICAL Last administered on 11/26/16 06:00; Start 11/26/16 at 05:00; Stop 11/26/16 at 05:01; Status DC Acetaminophen (Tylenol) 650 mg PREOP ONCE PO Last administered on 11/26/16 06 :00; Start 11/26/16 at 06:00; Stop 11/26/16 at 06:01; Status DC Plan Impression Patient chart reviewed, patient interviewed and anesthestic plan with risks, benefits, and alternatives discussed, and informed consent obtained. NPO per Anesth. Guidelines: Yes ASA Physical Status: ASA2 Mod Systemic Disease Anesthetic Plan: GA Bene/Risks/Altern/Consents: Yes HP Complete Prior to Induction: Yes Darrel Mcnair MD Nov 26, 2016 07:34
--- NOTE | 2016-11-26 09:33 | PCM.DISURG ---
Surgical Discharge Instruction Date of Service Nov 26, 2016 Dates of Hospitalization Date of Hospital Admission Providers Admitting Physician: Primary Care Physician: Loren Peterson MD Attending Physician: Mckenzie Card MD Diet Discharge Diet: No restrictions Activity Discharge Activity-General: Be up and about, Balance rest and activity, No lifting >15 pounds for 2 weeks, No driving while taking narcotic Dressing and Incisional Care Dressing Care: Allow Steri Stripes to fall off, Remove outer dressing after 24 hrs (Bandaids may be removed.) Hygiene: May shower (in 24 hours. Pat incisions dry. Okay to have warm soapy water run over the paper steri strips.) Follow Up Plan Follow-up Provider (F9): Luis Covarrubias PA-C Follow-up appointment: Weeks (2-3) Radha Narayan MD Nov 26, 2016 09:33
--- NOTE | 2016-11-26 09:35 | PCM.SURGPO ---
Immediate Operative Note Date of Surgery: Nov 26, 2016 Pre Operative Diagnosis Pancreatitis Post Operative Diagnosis Pancreatitis Procedure Laparoscopic cholecystectomy with intraoperative cholangiogram Surgeon and Franchise Broker Surgeon: Mckenzie Card MD Assistants: Radha Narayan MD and Remigio Kingston DO Findings Omental adhesions to anterior gallbladder. No stones palpated in gallbladder. Complications There were no periprocedural complications identified. Surgical Specimen Removed: Yes Specimen sent to Pathology: Yes Anesthetic Administered: GA Grafts, Implants: None Output, Estimated Blood Loss: 0 Blood Admin during surgery: No Radha Narayan MD Nov 26, 2016 09:35
[2016-11-26] MEDS: fentaNYL-PF 50 mCg/mL 2 mL Inj IVPUSH PRN ×2 (10:02→10:11)
--- NOTE | 2016-11-26 10:33 | OP ---
[address] [address] OPERATIVE REPORT PATIENT: AYSHA FRANZ : 1985 MR#: [id number] ADMIT: 11/26/2016 JOB ID: [id number] DATE OF SURGERY: 11/26/2016 PREOPERATIVE DIAGNOSIS(ES): Pancreatitis. POSTOPERATIVE DIAGNOSIS(ES): Pancreatitis. PROCEDURE PERFORMED: Laparoscopic cholecystectomy with attempted cholangiogram. SURGEON: Mckenzie Card MD. SURGICAL NURSE: Radha Narayan MD and Remigio Kingston DO COMPLICATIONS: None. CONDITION OF THE PATIENT: Stable. INDICATIONS: The patient is a 31-year-old lady who presented to [facility] in early July with upper and left-sided abdominal pain and was diagnosed with pancreatitis based on elevated lipase of 1683. She was not found to have any obvious triggers for this episode of pancreatitis and was sent to me by Dr. Rodriguez to consider cholecystectomy. She describes some residual discomfort, but no pain like she had in July. She had a drug abuse history in the past and is currently on Suboxone therapy. After discussing the risks, benefits, and alternatives, she was brought to the operating room for laparoscopic cholecystectomy with cholangiogram. PROCEDURE DETAILS: She was placed in a supine position and underwent smooth induction of general anesthesia. Abdomen was prepped and draped in the usual sterile fashion. Surgical time-out was undertaken using safety checklist, and all were in agreement. I began by making an infraumbilical incision and entered the abdomen using open Brian technique. We then placed three 5 mm ports, one in the epigastrium and two in the right upper quadrant and retracted the gallbladder cephalad and to the right side. We then dissected the omental adhesions to the gallbladder and dissected the triangle of Calot anteriorly and posteriorly and divided the cystic artery between clips and then clipped the cystic duct towards the specimen. We then tried to obtain a cholangiogram but could not advance the catheter beyond the valve in the cystic duct prompting us to abandon the attempt and return for the cholangiogram. We then clipped the cystic duct doubly on the patient's side and divided the cystic duct. We then dissected the gallbladder off the liver bed with good hemostasis and placed it in an EndoCatch bag. We removed all fluid from the right upper quadrant and after ensuring hemostasis, removed the EndoCatch bag along with the gallbladder and closed the umbilical port site with [id number] 0-Vicryl suture. Skin was reapproximated with 4-0 Monocryl. Steri-Strips and sterile dressing were applied. Patient was recovered from anesthesia and was taken to the recovery room in stable condition. SKYLAR
--- NOTE | 2016-11-26 11:15 | DRSVH ---
PROCEDURE: X-RAY OPERATIVE CHOLANGIOGRAM ([id number]) INDICATIONS: PANCREATITIS COMPARISON: [facility], [place], [facility], 07/09/2016, 18:37. [facility], [place], [place] HIDA SCAN [facility], 07/10/2016, 9:21. FINDINGS: Biliary ducts: The surgeon injected contrast into the biliary ducts after cannulation of the cystic duct stump. Prominent spillage of contrast is seen. IMPRESSION: Prominent spillage of contrast is seen, which is most likely secondary to incomplete seal involving the cannula placement at the cystic duct stump. If there is strong clinical concern for a postoperative biliary leak, please consider a dedicated HID A scan for further evaluation. Dictated by: Saturnino Dewitt M.D. on 11/26/2016 at 11:12 Approved by: Saturnino Dewitt M.D. on 11/26/2016 at 11:13
--- NOTE | 2016-11-26 11:45 | PCM.ANEP1 ---
Post Anesthesia PACU Phase 1 Assessment Vital Signs Vital Signs Date Time Temp Pulse Resp B/P Pulse Ox O2 Delivery O2 Flow Rate FiO2 11/26/16 10:35 61 14 114/65 97 Room Air 11/26/16 10:30 36.8 67 14 110/69 95 Room Air 11/26/16 10:25 70 12 111/69 97 Room Air 11/26/16 10:15 71 13 114/66 98 Room Air 11/26/16 10:00 64 18 109/65 100 Simple Mask 8 11/26/16 09:45 70 20 107/66 100 Simple Mask 8 11/26/16 09:40 76 19 109/66 100 Simple Mask 8 11/26/16 09:35 84 19 107/60 100 Simple Mask 8 11/26/16 09:33 36.8 89 19 106/58 99 Simple Mask 8 11/26/16 06:36 36.0 86 14 108/65 100 Room Air Anesthetic Administered: GA Level of Alertness: Awake, talking LAIRD's with Equal Strength: Yes Pain: No Nausea or Vomiting: No CV Function & Hydration Stable: Yes Airway Device: Oralpharangeal Airway Lungs: Clear to Auscultation, Normal Air Movement Dermatome Level: Full Sensation PACU Phase 2 Assessment Complications: No Follow up Care: No Patient Instructions Provided: N/A Darrel Mcnair MD Nov 26, 2016 11:45
--- NOTE | 2016-11-28 12:42 | PATH ---
SURGICAL PATHOLOGY Attending Physician:Mckenzie Card MD CASE STATUS: Signed Out PATIENT NAME: AYSHA FRANZ PID: [id number] : 1985 DATE COLLECTED:11/26/2016 21:29 SPECIMEN: Gallbladder CLINICAL HISTORY: PANCREATITIS 1). GALLBLADDER FINAL DIAGNOSIS: Gallbladder, Excision: Mild chronic cholecystitis. ICD10: K81.6 GROSS DESCRIPTION: The specimen is received in one formalin filled container labeled with the patient's name, sublabeled "gallbladder" and consists of an intact 8.0 x 2.5 x 2.5 CM gallbladder. The serosa is smooth. The wall is 0.2-0.3 CM in thickness. The mucosa is a dark green in color. The lumen in contains a dark green mucoid material and no calculus are noted. 5 direct customer service representative sections are submitted in one cassette. 11/27/2016DC ICD-9 CODES: CPT CODES: 1: 62894 Electronically Signed Out Deven Jimenez MD, PhD [facility] [address], [place] [address] Technical component performed at [facility], [facility] [address], [place], [address]
== END | disposition home or self-care (01) ==
LOC: SAS 05:47
PROVIDERS: ATTEND Student in an Organized Health Care Education/Training Program
DX: K81.1 Chronic cholecystitis (principal); K85.90 Acute pancreatitis without necrosis or infection, unspecified; F19.21 Other psychoactive substance dependence, in remission; F41.8 Other specified anxiety disorders; F17.210 Nicotine dependence, cigarettes, uncomplicated; Z79.891 Long term (current) use of opiate analgesic
CPT/HCPCS: 47562; 74300; 88304; C1713; J1100; J2175; J2250; J2405; J2704; J2710; J3010; J7120; Q9967